=== PATIENT | male | born 1985 | race Caucasian/White ===

== ENCOUNTER 2021-10-30 10:25 | Day surgery (SDC) | payer BC ==
[~2021-10-30] VITALS: Ht 170.2 cm; Wt 122.0 kg
[2021-10-30 11:12] VITALS: BP 135/91; PULSE 66; TEMP 97.7
[2021-10-30] MEDS ORDERED: NORCO 325 MG-51 TAB PO (12:13)
--- NOTE | 2021-10-30 12:21 | NUR ---
1220 - PT was taken to the OR by JENNIFER Mercado.
--- NOTE | 2021-10-30 12:21 | NUR ---
SQUEEGEE TENDER was contacted via phone regarding PT post-op nausea and slow to respond, who verbalized understanding and no new orders recieved.
[2021-10-30 15:00] VITALS: BP 135/91; PULSE 88; TEMP 97.4
--- NOTE | 2021-10-30 15:11 | NUR ---
1500 - PT arrives from PACU escorted by Richard RODRIGUEZ. PT is drowsy but oriented. Monitors applied and vitals obtained; O2 continues at 3L via nasal cannula. x4 lap sites are clean dry and intact. PT denies nausea; states pain 3/10 in LLQ, denies need for intervention. PT assisted upright in bed by RN. PT provided w/ snack and drink; currently tolerating well. Two visitor remain present. PT oriented to room and call pabon, within reach. Side rails x2 and non-slip socks remain on.
[2021-10-30 15:15] VITALS: BP 107/61; PULSE 83
--- NOTE | 2021-10-30 15:21 | NUR ---
1515 - PT has finished snack and continues to drink water/soda. Denies nasuea; states pain is tolerable at 3/10. O2 titrated down to 1L via nasal cannula; stats remain above 90%. Side rails x2. PT is resting in bed w/ call pabon within reach. Will monitor per intervals.
[2021-10-30 15:30] VITALS: BP 123/76; PULSE 75
--- NOTE | 2021-10-30 16:01 | NUR ---
1530 - VSS. PT requested assistance out of bed to use the bathroom; RN disconnected IV and minimally assisted w/ ambulation to bathroom. PT was able to void; then back to bed. PT expressed desire to go home. IV then discontinued. Catheter tip intact. Pressure bandage applied. NO redness or swelling noted. PT refused RN assistance changing into personal clothes. Denies nasuea. Call pabon remains within reach if needed.
--- NOTE | 2021-10-30 16:35 | NUR ---
1600 - DC instructions and educational material reveiwed w/ PT who verbalized understanding and signed the related paperwork; questions answered to PT satisfaction. PT then dismissed via wheelchair to PT entrence by JENNIFER Chacko. PT has DC packet and personal belongings; PT was transferred into the care of Amauri, who is driving private car.
[2021-10-30 17:11] VITALS: BP 115/69; PULSE 80; TEMP 98.1
== END 2021-10-30 16:25 | disposition home or self-care (01) ==
LOC: SDCO 10:25
DX: K40.90 Unilateral inguinal hernia, without obstruction or gangrene, not specified as recurrent (principal); D17.6 Benign lipomatous neoplasm of spermatic cord; G47.33 Obstructive sleep apnea (adult) (pediatric); E66.9 Obesity, unspecified; Z68.41 Body mass index [BMI] 40.0-44.9, adult
CPT/HCPCS: C1781; J0690; J1100; J1885; J2405; J2704; J3010; J7120